=== PATIENT | female | born 1975 | race Caucasian/White ===

== ENCOUNTER 2019-08-12 12:36 | Emergency (ER) | payer MEDICARE ==
[~2019-08-12] VITALS: Ht 167.6 cm; Wt 59.0 kg
[2019-08-12 15:10] VITALS: BP 137/93
== END 2019-08-12 15:21 | disposition home or self-care (01) ==
LOC: ER 12:36
DX: J40 Bronchitis, not specified as acute or chronic (principal); R11.0 Nausea; F41.9 Anxiety disorder, unspecified; F17.200 Nicotine dependence, unspecified, uncomplicated; Z88.6 Allergy status to analgesic agent; Z88.8 Allergy status to other drugs, medicaments and biological substances
CPT/HCPCS: 99283

== ENCOUNTER 2019-08-20 04:14 | Emergency (ER) | payer MEDICARE ==
[~2019-08-20] VITALS: Ht 167.6 cm; Wt 70.0 kg
[2019-08-20 04:42] VITALS: BP 169/104
== END 2019-08-20 06:13 | disposition left against medical advice (07) ==
LOC: ER 04:14
DX: Z11.3 Encounter for screening for infections with a predominantly sexual mode of transmission (principal); Z53.21 Procedure and treatment not carried out due to patient leaving prior to being seen by health care provider

== ENCOUNTER 2019-08-20 06:46 | Emergency (ER) | payer MEDICARE ==
[~2019-08-20] VITALS: Ht 170.2 cm; Wt 68.0 kg
[2019-08-20] MEDS ORDERED: CEFTRIAXONE SODIUM 250 MG/VIAL IM ONE (07:30)
[2019-08-20] MEDS ORDERED: AZITHROMYCIN 500 MG TABLET PO ONE (07:30)
[2019-08-20] MEDS ORDERED: LIDOCAINE HCL 1% 20ML VIAL (Pyxis) INJ INFIL ONE (07:30)
[2019-08-20 07:58] LABS: CLARITY URINE HAZY (CLEAR); COLOR URINE PALE YELLOW (YELLOW); KETONES URINE NEGATIVE (NEGATIVE); LEUKOCYTE ESTERASE URINE TRACE (NEGATIVE); NITRITE URINE NEGATIVE (NEGATIVE); OCCULT BLOOD URINE NEGATIVE (NEGATIVE); PROTEIN URINE NEGATIVE (NEGATIVE); SPECIFIC GRAVITY URINE 1.004 (1.005-1.030); UROBILINOGEN URINE 0.2 E.U./dL (0.2-1.0)
[2019-08-20 08:00] VITALS: BP 138/90
[2019-08-22 08:07] LABS: CHLAMYDIA TRACHOMATIS NAA Negative (Negative); NEISSERIA GONORRHOEAE NAA Negative (Negative)
== END 2019-08-20 08:17 | disposition home or self-care (01) ==
LOC: ER 06:46
DX: A63.8 Other specified predominantly sexually transmitted diseases (principal); F41.9 Anxiety disorder, unspecified; F32.9 Major depressive disorder, single episode, unspecified; F12.10 Cannabis abuse, uncomplicated; Z88.5 Allergy status to narcotic agent; Z88.8 Allergy status to other drugs, medicaments and biological substances
CPT/HCPCS: 81003; 81025; 87491; 87591; 96372; 99283; J0696

== ENCOUNTER 2019-09-29 18:57 | Emergency (ER) | payer MEDICARE ==
[~2019-09-29] VITALS: Ht 162.6 cm; Wt 59.0 kg
[2019-09-30] MEDS ORDERED: KETOROLAC 15MG/ML VIAL IM ONE (00:30)
[2019-09-30 01:55] LABS: CLARITY URINE CLEAR (CLEAR); COLOR URINE YELLOW (YELLOW); KETONES URINE NEGATIVE (NEGATIVE); LEUKOCYTE ESTERASE URINE NEGATIVE (NEGATIVE); NITRITE URINE NEGATIVE (NEGATIVE); OCCULT BLOOD URINE NEGATIVE (NEGATIVE); PH URINE 5.5 (4.5-8.0); PROTEIN URINE NEGATIVE (NEGATIVE); SPECIFIC GRAVITY URINE 1.013 (1.005-1.030); UROBILINOGEN URINE 0.2 E.U./dL (0.2-1.0)
[2019-09-30 02:22] LABS: *COCAINE SCREEN URINE NEGATIVE (NEGATIVE); METHADONE URINE SCREEN NEGATIVE (NEGATIVE); OPIATES URINE SCREEN NEGATIVE (NEGATIVE); PHENCYCLIDINE URINE SCREEN NEGATIVE (NEGATIVE)
[2019-09-30 02:23] LABS: *BARBITURATES SCREEN URINE NEGATIVE (NEGATIVE); *BENZODIAZEPINES SCREEN URINE NEGATIVE (NEGATIVE); CANNABINOID URINE SCREEN NEGATIVE (NEGATIVE)
[2019-09-30 02:57] LABS: *AMPHETAMINES SCREEN URINE PRESUMTIVE POSITIVE (NEGATIVE)
[2019-09-30 03:01] VITALS: BP 131/83
== END 2019-09-30 11:55 | disposition left against medical advice (07) ==
LOC: ER 18:57
DX: S09.8XXA Other specified injuries of head, initial encounter (principal); M25.522 Pain in left elbow; F41.9 Anxiety disorder, unspecified; Y08.89XA Assault by other specified means, initial encounter; F32.9 Major depressive disorder, single episode, unspecified; Y93.89 Activity, other specified; Y92.9 Unspecified place or not applicable; Z59.0 Homelessness; Z88.6 Allergy status to analgesic agent; Z88.8 Allergy status to other drugs, medicaments and biological substances
CPT/HCPCS: 71045; 73080; 80305; 81003; 81025; 96372; 99284; J1885

== ENCOUNTER 2019-09-30 13:16 | Emergency (ER) | payer MEDICARE | END 2019-09-30 14:35 | disposition left against medical advice (07) | LOC: ER 14:29 | DX: Z53.21 Procedure and treatment not carried out due to patient leaving prior to being seen by health care provider (principal); Z88.6 Allergy status to analgesic agent; Z88.8 Allergy status to other drugs, medicaments and biological substances ==